=== PATIENT | male | born 1945 | race Caucasian/White ===

== ENCOUNTER → 2017-12-09 | Outpatient (CLI) | payer MEDICARE, OTHER ==
[~2017-12-09] MED LIST: ASCO-182 PO; ASPI-1471 PO; ATOR10TA24 PO; BUPR-147 PO; ESCI20TA38 PO; GLUC500C29 PO; IOPAMIDOL 76% 75 ML INFUS BTL 75 ML ONE; SIMV-49 PO; VITA150T2 PO
--- NOTE | 2017-12-09 12:51 | RADIOLOGY IMAGING REPORT ---
FACILITY: [facility] [place] PATIENT NAME: Sahra Noe : 1945 MR: [id number] V: [id number] EXAM DATE: ORDERING PHYSICIAN: SATNAM MON TECHNOLOGIST: Location: [facility] Patient: Sahra Noe : 1945 Visit/Account:[id number] Date of Sevice: 12/09/2017 HEAD W W/O CONTRAST COMPARISONS: None. ADDITIONAL PERTINENT HISTORY: Imbalance TECHNIQUE: Multiple axial images were obtained from the skull base to the vertex before and after th e IV administration of contrast. One of the following dose optimization techniques was utilized in t he performance of this exam: Automated exposure control; adjustment of the mA and/or kV according to the patient's size; or use of an iterative reconstruction technique. Specific details can be refere nced in the facility's radiology CT exam operational policy. CONTRAST: 75 ml of Isovue-370 FINDINGS: Midline shift: Negative Ventricles: Negative Brain parenchyma: Negative Extra-axial spaces: Negative Pathologic enhancement: Negative Intracranial vasculature: Negative Osseous structures: Negative Paranasal sinuses and mastoid air cells: Mucosal thickening involving both maxillary sinuses as well as the ethmoid air cells, sphenoid sinuses and near complete opacification of the left frontal sinus . Surrounding soft tissues and orbits: Negative IMPRESSION: 1. No evidence of acute intracranial pathology. 2. Underlying paranasal sinus disease. Report Dictated By: Eliecer Florez MD at 12/09/2017 12:42 PM Report E-Signed By: Eliecer Florez MD at 12/09/2017 12:45 PM WSN:[email or web address]
== END ==
LOC: CT 10:43
PROVIDERS: ATTEND Family Medicine
DX: J32.9 Chronic sinusitis, unspecified (principal); G47.61 Periodic limb movement disorder
CPT/HCPCS: 36415; 70470; 82565; Q9967

== ENCOUNTER → 2017-12-22 | Outpatient (CLI) | payer MEDICARE, OTHER ==
[~2017-12-22] MED LIST changes: -IOPAMIDOL 76% 75 ML INFUS BTL 75 ML ONE
--- NOTE | 2017-12-22 15:16 | RADIOLOGY IMAGING REPORT ---
FACILITY: [facility] PATIENT NAME: Sahra Noe : 1945 MR: [id number] V: [id number] EXAM DATE: ORDERING PHYSICIAN: ARJUN IZAGUIRRE TECHNOLOGIST: Location: [facility] Patient: Sahra Noe : 1945 Visit/Account:[id number] Date of Sevice: 12/22/2017 EXAMINATION: MRI Brain without intravenous contrast HISTORY: Lightheadedness. COMPARISON: None. TECHNIQUE: Multi-planar, multi-sequence brain MRI was performed without IV contrast administration. FINDINGS: Brain volume: Normal. Sagittal midline structures: Negative. Ventricles: Negative. Acute ischemic changes: None. Hemorrhage: None. Masses / edema: None. Gallardo-white: Negative. White matter: Negative. Vessels: Negative. Extra-axial: Negative. Calvarium / scalp: Negative. Skull base: Negative. Visualized sinuses / orbits: Moderate mucosal thickening in the maxillary sinuses, ethmoid air cells , and left frontal sinus. Visualized upper neck: Negative. IMPRESSION: 1. No acute intracranial abnormality or mass. 2. Moderate mucosal thickening in the maxillary sinuses, ethmoid air cells, and left frontal sinus. Report Dictated By: Lopez Ghotra MD at 12/22/2017 3:05 PM Report E-Signed By: Lopez Ghotra MD at 12/22/2017 3:12 PM WSN:[email or web address]
--- NOTE | 2017-12-22 17:06 | RADIOLOGY IMAGING REPORT ---
FACILITY: [facility] PATIENT NAME: Sahra Noe : 1945 MR: [id number] V: [id number] EXAM DATE: ORDERING PHYSICIAN: ARJUN IZAGUIRRE TECHNOLOGIST: Location: [facility] Patient: Sahra Noe : 1945 Visit/Account:[id number] Date of Sevice: 12/22/2017 CAROTID HISTORY: Lightheadedness COMPARISON: None. FINDINGS: Grayscale, duplex and color Doppler interrogation of the extracranial carotid and vertebral arteries was performed bilateral. On the right, peak systolic velocities within the common and internal carotid arteries are 95 and 82 cm/sec respectively. . Antegrade flow within the common, internal and external carotid arteries as w ell as vertebral artery. ICA/CCA ratio 1. On the left, peak systolic velocities within the common and internal carotid arteries are 90 and 70 c m/sec respectively. A small amount plaque is identified left carotid bulb and proximal and mid left internal and external external carotid arteries. Antegrade flow within the common, internal and exte rnal carotid arteries as well as vertebral artery. ICA/CCA ratio 0.9.. Less flow is identified in th e left vertebral artery compared to the right. Peak systolic velocity in the left vertebral artery i s 27 cm/s on the right 55 cm/s IMPRESSION: Small amount of plaque identified left carotid bulb and left internal and external carotid arteries a lthough no hemodynamically significant narrowing identified Less flow is identified in the left vertebral artery relative to the right as described above Velocity criteria are extrapolated from diameter data as defined by the Society of Radiologists in [facility] Consensus Conference Radiology 2003; 229;340-346 Report Dictated By: Shannon Newman MD at 12/22/2017 5:00 PM Report E-Signed By: Shannon Newman MD at 12/22/2017 5:03 PM WSN:[email or web address]
== END ==
LOC: MRI 01:20
PROVIDERS: ATTEND Psychiatry & Neurology Neurology
DX: E42 Marasmic kwashiorkor (principal); E87.8 Other disorders of electrolyte and fluid balance, not elsewhere classified
CPT/HCPCS: 70551; 93306; 93880

== ENCOUNTER → 2018-01-19 | Outpatient (CLI) | payer MEDICARE, OTHER | LOC: RESP 19:52 | PROVIDERS: ATTEND Family Medicine | DX: G47.33 Obstructive sleep apnea (adult) (pediatric) (principal); G47.61 Periodic limb movement disorder; G47.36 Sleep related hypoventilation in conditions classified elsewhere ==